=== PATIENT | male | born 1955 | race Caucasian/White ===

== ENCOUNTER → 2020-05-07 | Outpatient (CLI) | payer OTHER ==
[2020-05-07] VITALS (10 sets, daily range): BP systolic 125–148; BP diastolic 45–92; PULSE 66–79
[~2020-05-07] VITALS: Ht 195.6 cm; Wt 125.9 kg
[~2020-05-07] MED LIST: ASPIRIN 81M81 MG/TA2 PO; HCTZ12.5TAB PO; VITAMIN D32000 IU PO; ZESTRIL 20MG TA20 MG PO; ZOCOR 80MG80 MG PO
--- NOTE | 2020-05-07 09:40 | NUR ---
Pt to ct per ambulation. Initial scans done to determine correct placement of markers due to no previous images being available. After scan pt placed prone and monitors applied to pt.
--- NOTE | 2020-05-07 10:15 | NUR ---
Specimen obtained by Dr Urbano and placed in formalin and RPMI. Specimens labeled.
== END ==
LOC: COL.RAD 08:53
DX: R59.0 Localized enlarged lymph nodes (principal); R93.89 Abnormal findings on diagnostic imaging of other specified body structures
CPT/HCPCS: 27433

== ENCOUNTER → 2021-01-04 | Outpatient (CLI) | payer OTHER ==
--- NOTE | 2021-01-03 12:29 | NUR ---
FIRST INJECTION FOR COVID ABOUT A MONTH AGO
[~2021-01-04] VITALS: Ht 195.6 cm; Wt 131.2 kg
[2021-01-04 14:14] VITALS: BP 132/88; PULSE 84
[2021-01-04 15:15] VITALS: BP 132/93; PULSE 72
== END ==
LOC: COL.RAD 13:51
DX: R59.0 Localized enlarged lymph nodes (principal)

== ENCOUNTER → 2021-05-19 | Outpatient (CLI) | payer OTHER | LOC: COL.RAD 09:39 | DX: D47.Z2 Castleman disease (principal); R59.0 Localized enlarged lymph nodes | CPT/HCPCS: Q9967 ==

== ENCOUNTER → 2021-09-13 | Outpatient (CLI) | payer OTHER | LOC: COL.RAD 07:49 | DX: D47.Z2 Castleman disease (principal); R59.0 Localized enlarged lymph nodes | CPT/HCPCS: Q9967 ==

== ENCOUNTER → 2022-01-13 | Outpatient (CLI) | payer OTHER | LOC: COL.RAD 08:15 | DX: D47.Z2 Castleman disease (principal); J43.9 Emphysema, unspecified; I25.10 Atherosclerotic heart disease of native coronary artery without angina pectoris; R59.0 Localized enlarged lymph nodes | CPT/HCPCS: Q9967 ==

== ENCOUNTER → 2022-05-31 | Outpatient (CLI) | payer OTHER | LOC: COL.RAD 05-24 10:00 | DX: D47.Z2 Castleman disease (principal); I77.810 Thoracic aortic ectasia | CPT/HCPCS: Q9967 ==

== ENCOUNTER → 2024-05-20 | Outpatient (CLI) | payer MEDICARE, OTHER ==
[~2024-05-20] MED LIST changes: +Barium Sulfate 2% Oral Susp 450 ML X 2 BOTTLES PO SCH; +Iohexol 300 - 100 ML VIAL IV ONE; +NS 100 ML IV SCH
== END ==
LOC: COL.RAD 08:41
DX: R59.1 Generalized enlarged lymph nodes (principal); D47.Z2 Castleman disease
CPT/HCPCS: Q9967